=== PATIENT | female | born 1935 | race Caucasian/White ===

== ENCOUNTER 2021-09-19 10:41 | Day surgery (SDC) | payer MEDICARE, OTHER, SELFPAY ==
[2021-09-19] MEDS: Tropicam./Phenyleph. (1/2.5%) 5 ML BTL OU ×3 (11:44→12:30)
[2021-09-19 12:04] VITALS: BP 132/51; PULSE 66; RESP 16; TEMP 36.4; O2SAT 96
--- NOTE | 2021-09-19 12:07 | ANES.PREOP_ITS ---
General Info Date of Service Date Performed: 09/19/21 Height: 5 ft Weight: 74.843 kg Body Mass Index (BMI): 32.2 Surgical Procedure: Operation Date: 09/19/21 14:40 Proposed Procedure Side Surgeon p Cataract Extraction with IOL Bilateral Bilateral Huan Concepcion MD Meds Allergies and Home Medications Allergies Allergy/AdvReac Type Severity Reaction Status Date / Time [id number] Reductase Allergy Unknown Verified 09/19/21 11:50 Inhibitor lisinopril AdvReac Severe renal Unverified 09/19/21 12:03 reaction, bronchospasm, dry mouth NSAIDS (Non-Steroidal AdvReac Severe renal Unverified 09/19/21 12:04 Anti-Inflamma dysfunction hydromorphone AdvReac Intermediate Hallucinati Unverified 09/19/21 12:04 ons Home Medication Medication Instructions Recorded acetaminophen 500 mg tablet 1,000 mg PO TID PRN 09/16/21 allopurinol 300 mg tablet 300 mg PO QAM 09/16/21 cinacalcet 30 mg tablet 30 mg PO DAILY 09/16/21 diltiazem HCl 120 mg tablet 120 mg PO BID 09/16/21 diphenhydramine HCl 25 mg tablet 25 mg PO HS 09/16/21 docusate sodium 100 mg capsule 100 mg PO DAILY PRN 09/16/21 (Colace) metoprolol succinate 100 mg 100 mg PO DAILY 09/16/21 tablet,extended release 24 hr metoprolol succinate 50 mg 50 mg PO DAILY 09/16/21 tablet,extended release 24 hr mycophenolate mofetil 250 mg 250 mg PO BID 09/16/21 capsule nystatin 100,000 unit/mL oral 4 ml buccal QID PRN 09/16/21 suspension omeprazole 40 mg capsule,delayed 40 mg PO DAILY 09/16/21 release prednisone 2.5 mg tablet 5 mg PO DAILY 09/16/21 rosuvastatin 5 mg tablet 5 mg PO DIRECTED 09/16/21 Current Visit Medications: Current Medications Generic Name Dose Route Start Last Admin Trade Name Freq PRN Reason Stop Dose Admin Acetaminophen 1,000 mg 09/19/21 06:00 Acetaminophen 500 Mg Tab PO Q4H PRN PRN Miscellaneous Medication 0 ml 09/19/21 06:00 Prednisolone 1%, Moxifloxacin 0.5%, Nepafenac 0.1% 5ml Btl OU DIRECTED [facility] Miscellaneous Medication 0 ml 09/19/21 06:00 09/19/21 12:02 Tropicam./Phenyleph. (1/2.5%) 5 Ml Btl OU 1 drp DIRECTED MIKAELA Administration Tetracaine HCl 0 ml 09/19/21 06:00 Tetracaine 0.5% 4 Ml Btl OU DIRECTED [facility] PFSH Medical History Medical History (Updated 09/19/21 @ 12:29 by Huan Concepcion MD) Anemia COVID-19 08/26 positive test GERD (gastroesophageal reflux disease) Gout History of vertebral fracture 05/2021 L1 HLD (hyperlipidemia) HTN (hypertension) Long-term use of immunosuppressant medication Membranoproliferative glomerulonephritis Menopause Osteoporosis Paresthesia Prediabetes Recurrent UTI Renovascular hypertension Right thyroid nodule Situational anxiety Skin cancer Telogen hair loss Trigger finger Vitamin D deficiency Medical History Comments:: has back brace, is able to lay flat Surgical History Surgical History Hx of bilateral hip replacements Hx of bilateral salpingo-oophorectomy Hx of parotidectomy 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 Tobacco Smoking/Tobacco Use Status: Former Tobacco Use Alcohol Alcohol Intake: former Substance Use Substance use: Never Substance use type: does not use Vital Signs and Lab Results Lab Results Blood Type / Crossmatch: No Data to Display Complete Blood Count: No Data to Display Complete Metabolic Panel: No Data to Display Liver Function Panel: No Data to Display Coagulation Panel: No Data to Display Cardiac Panel: No Data to Display Arterial Blood Gas: No Data to Display Venous Blood Gas: No Data to Display Pancreas Panel: No Data to Display Thyroid Panel: No Data to Display Infectious Disease: No Data to Display Blood Cultures: No Data to Display Toxicology Panel: No Data to Display Anesthesia Assessment and Plan Anesthesia History Personal History: No History of Anesthesia Complications Family History: No Family History of Anesthesia Complications Exercise Tolerance Exercise Tolerance: Metabolic Equivalents>4 Pertinent Negatives Pertinent Negatives: No Symptoms of GERD, No Major Cardiovascular Symptoms or Co mplaints, No Major Pulmonary Symptoms or Complaints and No History of CVA/TIA Cardiac & Pulmonary Exam Cardiac Exam: Heart Murmur Present Pulmonary Exam: Clear Bilateral Breath Sounds Implantable Cardiac Device Does patient have a Pacemaker or an ICD?: No Airway Exam Known Difficult Airway: No Mallampati Class: 2 Mouth Opening: Normal (> 3cm) Thyromental Distance: Greater than 3 cm Neck Range of Motion: Full ROM Neck Circumference: Normal Teeth Condition: Normal Dentition and Generalized Poor Dentition ASA Classification ASA Score: ASA 3 Emergency Case?: No NPO Status NPO Status: NPO Clears >2 hours, Solids >8 hours Anesthesia Plan Resuscitation Status: Full Code Anesthesia Technique: MAC Anesthesia Airway Planned: Natural Airway Monitors Used: Standard Monitors Preoperative Comments:: 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 Borderline DM. Heart murmur from childhood. COVID+ 08/24 with mild symptoms. Fall in May 2021 with Lumbar vertebral fracture, wearing a lumbar support.
[2021-09-19 12:34] VITALS: BMI 32.2
[2021-09-19] MEDS: Tetracaine 0.5% 4 ML BTL OU ×2 (12:51→13:21)
[2021-09-19] MEDS: Povidone-Iodine Ophth 30 ML BTL ×2 (12:52→13:20)
[2021-09-19] MEDS: Lidocaine 2% Jelly 6 ML SYR ×2 (12:54→13:22)
[2021-09-19] MEDS: Lidocaine 1% Pres-Free 5 ML VIAL ×2 (12:58→13:24)
[2021-09-19] MEDS: Duovisc Viscoelastic System EACH 1 EACH ×2 (12:59→13:23)
[2021-09-19] MEDS: Balanced Salt Soln.-PLUS 500 ML BAG ×2 (13:02→13:23)
[2021-09-19 13:41] VITALS: BP 135/62; PULSE 61; RESP 16; TEMP 36.8; O2SAT 94
--- NOTE | 2021-09-19 13:45 | W.PM.DSUDISC ---
Discharge Plan Disposition Patient Disposition: HOME Condition: Good Discharge Details Attending Provider: Huan Concepcion Primary Care Provider: Frances Moctezuma Home Meds and New Rx's Prescriptions: No Action nystatin 100,000 unit/mL Suspension 4 ml buccal QID PRN metoprolol succinate 50 mg Tablet Extended Release 24 Hr 50 mg PO DAILY mycophenolate mofetil 250 mg Capsule 250 mg PO BID metoprolol succinate 100 mg Tablet Extended Release 24 Hr 100 mg PO DAILY omeprazole 40 mg Capsule,Delayed Release(Dr/Ec) 40 mg PO DAILY diltiazem HCl 120 mg Tablet 120 mg PO BID prednisone 2.5 mg Tablet 5 mg PO DAILY diphenhydramine HCl 25 mg Tablet 25 mg PO HS docusate sodium [Colace] 100 mg Capsule 100 mg PO DAILY PRN allopurinol 300 mg Tablet 300 mg PO QAM rosuvastatin 5 mg Tablet 5 mg PO DIRECTED Rx Instructions: MWF cinacalcet 30 mg Tablet 30 mg PO DAILY acetaminophen 500 mg Tablet 1,000 mg PO TID PRN Discharge Instructions Stand Alone Forms: Post-op Topical Cataract, Kristine Cruzey (DSU) Discharge Orders Discharge Orders: Discharge Order (Routine); Ordered 09/19/21 Ordered By: Huan Concepcion DS: Diagnosis Discharge Diagnosis (1) Nuclear sclerotic cataract of right eye: Status: Resolved (2) Posterior subcapsular age-related cataract, right eye: Status: Resolved (3) Nuclear sclerotic cataract of left eye: Status: Resolved (4) Posterior subcapsular age-related cataract of left eye: Status: Resolved
--- NOTE | 2021-09-19 13:46 | ROE_ITS ---
Date of service: 09/19/21 Time of Service: 13:46 Operative Note Operative Note DATE OF PROCEDURE: 09/19/21 PRE-OP DIAGNOSIS: Dense nuclear/posterior subcapsular cataract, both eyes POST-OP DIAGNOSIS: same PROCEDURE: Immediately sequential bilateral cataract extraction using phacoemulsification with intraocular lens implants, both eyes SURGEON: Huan Concepcion Refer to Anesthesia Record PATHOLOGY: none sent COMPLICATIONS: None Patient was transported to: same day Patient's condition: stable Implants: [employer] / [employer] Tecnis ZCB00 Indications: Progressive decreased vision due to cataract, both eyes Procedure Description: CATARACT SURGERY OPERATIVE REPORT PREOPERATIVE DIAGNOSIS: Dense nuclear/posterior subcapsular cataract, both eyes POSTOPERATIVE DIAGNOSIS: Same OPERATION: Bilateral sequential cataract extraction using phacoemulsification with posterior chamber intraocular lens implant, both eyes IOL OS: IOL Environmental Health Inspector/Model: [employer] / DUSTY Tecnis ZCB00 IOL Power: + 20.0 diopters IOL Serial Number: [id number] Optic Diameter: 6.0mm Haptic/Overall Diameter: 13.0mm PHACO INFO OS: Felice [employer] Vision System with OZil and Active Fluidics Cumulative Dispersed Energy (CDE): 18.13 seconds IOL OD: IOL Environmental Health Inspector/Model: [employer] / DUSTY Tecnis ZCB00 IOL Power: + 19.5 diopters IOL Serial Number: [id number] Optic Diameter: 6.0mm Haptic/Overall Diameter: 13.0mm PHACO INFO OD: Felice [employer] Vision System with OZil and Active Fluidics Cumulative Dispersed Energy (CDE): 16.23 seconds SURGEON: Huan Concepcion MD, CODY ANESTHESIA: Monitored Anesthesia Care (MAC), with local sub-tenon's anesthetic infiltration COMPLICATIONS: None SPECIMENS: None INDICATIONS FOR PROCEDURE: The patient is an 86-year-old lady who has developed significant dense bilateral nuclear and posterior subcapsular cataract with poor visual acuity. The option of cataract surgery was offered to the patient and she felt she was symptomatic enough that she wished to proceed. In addition, she desired bilateral same-day surgery, understanding the possible risks. PROCEDURE: The correct surgical eye was identified and marked as both eyes and the pupils were dilated in the preoperative area using mydriatics and cycloplegics. The dilated pupil size was 7.0 mm. Oral sedation was administered in the form of an Imprimis MKO Melt (midazolam 3mg/ketamine 25mg/ondansetron 2mg). The patient was brought to the operating room where cardiopulmonary monitoring was instituted and surgical time-out was performed, confirming the correct operative eye and IOL power. Attention was frist directed towar the right eye. Topical anesthesia was administered and ophthalmic povidone-iodine 5% was instilled into the conjunctival fornices. Lidocaine gel was applied to the cornea and the ruddy-ocular area was prepped with Betadine 10% solution and draped in the usual sterile fashion for intraocular surgery, including an aperture drape. A Tegaderm transparent film dressing was cut in half and used to cover the lashes and lid margins. Care was taken to sequester the lashes and lid margins under the Tegaderm dressing. A lid speculum was placed between the lids of the operative eye and the Felice LuxOR operating microscope was maneuvered into position. Alejo scissors were then used to make a conjunctival buttonhole approximately 6mm posterior to the limbus in the inferonasal quadrant. Blunt dissection was carried out to expose bare sclera, and a blunt-tipped sub-tenon?s anesthesia cannula was introduced and passed posteriorly along the globe where non- preserved plain lidocaine was injected into posterior sub-Tenon?s space. A sideport knife was used to make a paracentesis port at the 7:00 postion. Intraocular phenylephrine/lidocaine was injected into the anterior chamber. The anterior chamber was filled with viscoelastic. . A 2.4mm keratome knife was used to construct a two-plane near-clear corneal tunnel extending 2.0mm into clear cornea at the 10:00 position. A flap was raised on the anterior capsule and capsulorhexis forceps were used to complete a continuous curvilinear capsulorhexis of 5.0 mm. Balanced salt solution was then used to perform cortical cleaving hydrodissection and nuclear hydrodelineation until the lens could be freely rotated within the capsular bag. The lens nucleus was then disassembled and removed within the capsular bag and iris plane using phacoemulsification. Residual cortical material was removed using the 45-degree angled silicone I/A tip with 0.3mm port. The posterior capsule was carefully polished to remove as much residual lens epithelial cells as safely possible. The capsular bag was then inflated and the anterior chamber deepened with viscoelastic. The lens implant described above was inserted into the capsular bag using the DUSTY [place] Injector. A Kuglen hook was used to dial the IOL into position. Residual viscoelastic was then removed first from posterior to the IOL, then from the anterior chamber using the I/A handpiece. The lens implant was noted to center nicely within the capsular bag. The incisions were stromally hydrated, and the anterior chamber was reformed using BSS. Then 0.5cc of moxifloxacin 1.0mg/ml were injected into the capsular bag and anterior chamber. The incisions were checked with a Weck spear and found to be secure. Several drops of ophthalmic povidone-iodine 5% were then applied to the eye followed by two drops of Imprimis combination prednisolone/moxifloxacin/nepafenac solution. The drapes were removed and a clear plastic protective eye shield was placed over the eye. Attention was then directed toward the left eye, where an entirely new set of instruments, tubing, medications, fluids, gowns, gloves, and drapes were used. Topical anesthesia was administered and ophthalmic povidone-iodine 5% was instilled into the conjunctival fornices. Lidocaine gel was applied to the cornea and the ruddy-ocular area was prepped with Betadine 10% solution and draped in the usual sterile fashion for intraocular surgery, including an aperture drape. A Tegaderm transparent film dressing was cut in half and used to cover the lashes and lid margins. Care was taken to sequester the lashes and lid margins under the Tegaderm dressing. A lid speculum was placed between the lids of the operative eye and the Felice LuxOR operating microscope was maneuvered into position. Alejo scissors were then used to make a conjunctival buttonhole approximately 6mm posterior to the limbus in the inferonasal quadrant. Blunt dissection was carried out to expose bare sclera, and a blunt-tipped sub-tenon?s anesthesia cannula was introduced and passed posteriorly along the globe where non- preserved plain lidocaine was injected into posterior sub-Tenon?s space. A sideport knife was used to make a paracentesis port at the 12:00 postion. Intraocular phenylephrine/lidocaine was injected into the anterior chamber. The anterior chamber was filled with viscoelastic. A 2.4mm keratome knife was used to construct a two-plane near-clear corneal tunnel extending 2.0mm into clear cornea at the 3:00 position. A flap was raised on the anterior capsule and capsulorhexis forceps were used to complete a continuous curvilinear capsulorhexis of 5.0 mm.. Balanced salt solution was then used to perform cortical cleaving hydrodissection and nuclear hydrodelineation until the lens could be freely rotated within the capsular bag. The lens nucleus was then disassembled and removed within the capsular bag and iris plane using phacoemulsification. Residual cortical material was removed using the 45-degree angled silicone I/A tip with 0.3mm port. The posterior capsule was carefully polished to remove as much residual lens epithelial cells as safely possible. The capsular bag was then inflated and the anterior chamber deepened with viscoelastic. The lens implant described above was inserted into the capsular bag using the [employer] [place] Injector. A Kuglen hook was used to dial the IOL into position. Residual viscoelastic was then removed first from posterior to the IOL, then from the anterior chamber using the I/A handpiece. The lens implant was noted to center nicely within the capsular bag. The incisions were stromally hydrated, and the anterior chamber was reformed using BSS. Then 0.5cc of moxifloxacin 1.0mg/ml were injected into the capsular bag and anterior chamber. The incisions were checked with a Weck spear and found to be secure. Several drops of ophthalmic povidone-iodine 5% were then applied to the eye followed by two drops of Imprimis combination prednisolone/moxifloxacin/nepafenac. The drapes were removed and a clear plastic protective eye shield was placed over the eye. The patient was then returned to Same Day Surgery in stable condition.
[2021-09-19 14:08] VITALS: BP 123/50; PULSE 56; RESP 16; TEMP 36.7; O2SAT 94
--- NOTE | 2021-09-19 14:17 | W.ANESPOSTOP ---
Postoperative Evaluation Date, Time and Location Date Performed: 09/19/21 Time Performed: 14:17 Patient Location: Day Surgery Unit Vital Signs Most Recent Imported Vital Signs: Most Recent Vital Signs Temp Pulse Resp BP Pulse Ox 36.7 C 56 L 16 123/50 L 94 09/19/21 14:08 09/19/21 14:08 09/19/21 14:08 09/19/21 14:08 09/19/21 14:08 Pain Score Most Recent Pain Score: Most Recent Pain Score Pain Level 0 09/19/21 14:08 Assessment Mental Status: Awake (Alert & Oriented to Patient Baseline) Airway and Respiratory Function: Patent airway with normal (patient baseline) respiratory exam Cardiovascular Function: Hemodynamically Stable Hydration Status: Adequately Hydrated Nausea & Vomiting: No Nausea or Vomiting Pain: Pt. Denies Any Pain Peripheral Nerve Block: Patient did not receive a nerve block
== END 2021-09-19 14:30 | disposition home or self-care (01) ==
LOC: SUR 10:44
PROVIDERS: PCP Family Medicine; Visit Provider Ophthalmology
PROC: (CPT 66984; principal; 2021-09-19 14:30)
DX: H25.043 Posterior subcapsular polar age-related cataract, bilateral (principal)
CPT/HCPCS: 66984; V2632